=== PATIENT | male | born 1955 | race Caucasian/White ===

== ENCOUNTER 2016-08-03 21:01 | Inpatient (IN) | payer MEDICAID ==
[~2016-08-03] VITALS: Ht 170.2 cm; Wt 80.2 kg
[~2016-08-03 21:01] MED LIST: FURO80TA PO; GLIP-116 PO; LOSA100T27 PO; OMEP20CA5 PO; SIMV-13 PO; WARF2.5T39 PO
[2016-08-03 22:13] LABS: Basophils # (auto) 0 uL; DEFINITIVE VIEW TRANSMISSION; Eosinophils # (auto) 0 uL; Hematocrit 38.5 % (41.0-53.0); Hemoglobin 12.1 g/dL (13.5-17.5); Lymphocytes # (auto) 0.5 uL; Lymphocytes % (auto) 2.8 % (10.0-50.0); Mean Corpuscular Hemoglobin 26.3 pg (28.0-32.0); Mean Corpuscular Hgb Conc. 31.5 g/dL (32.0-36.0); Mean Corpuscular Volume 83.5 fL (80.0-100.0); Monocytes # (auto) 0.9 uL; Monocytes % (auto) 5.1 % (0.0-12.0); Neutrophils # (auto) 15.5 uL; Neutrophils % (auto) 92.1 % (37.0-80.0); Platelet Count (auto) 185 10^3/uL (140-450); SUSPECT VIEW TRANSMISSION; White Blood Cell 16.9 10^3/uL (4.4-10.8)
[2016-08-03 22:27] LABS: Red Cell Distribution Width 21.1 % (11.6-16.0)
[2016-08-03 22:32] LABS: Albumin 3.5 g/dL (3.4-5.0); BUN/Creatinine Ratio 23.2; Calcium 8.2 mg/dL (8.5-10.1); Potassium 3.6 mmol/L (3.5-5.1)
[2016-08-03 22:34] LABS: Total Protein 7.5 g/dL (6.4-8.2)
[2016-08-03 23:06] LABS: Platelet Estimate Adequate
[2016-08-03 23:07] LABS: Anisocytosis Moderate; Hypochromia Slight
[2016-08-04] MEDS ORDERED: cefTRIAXone 1GM/50ML D5W 50 ML IV ONE (03:15)
[2016-08-04 04:05] LABS: Urine Bilirubin Negative (Negative); Urine Blood Negative /uL (Negative); Urine Color Yellow (Yellow); Urine Glucose Normal (Normal); Urine Hyaline Cast MANY /lpf (0 - 2); Urine Ketone Negative (Negative); Urine Mucus FEW (None Seen); Urine Nitrite Negative (Negative); Urine RBC <1 /hpf (0 - 3); Urine Squamous Epithelial Cell FEW /hpf (<5); Urine Urobilinogen Normal (Negative)
[2016-08-04] MEDS ORDERED: ACETAMINOPHEN 325 MG TAB PO PRN (05:15)
[2016-08-04] MEDS ORDERED: NITROGLYCERIN 0.4 MG SL TAB SL PRN (05:15)
[2016-08-04] MEDS ORDERED: DEXTROSE (50%) 50ML SYRG IV PRN (05:15)
[2016-08-04] MEDS ORDERED: DEXTROSE 10% 1,000 ML IV ONE (05:15)
[2016-08-04] MEDS ORDERED: MORPHINE SULF INJ 2 MG/ML SYRINGE 1ML IV PRN (05:15)
[2016-08-04] MEDS: InsuLIN REG 1unit/0.01ml Soln (100units/ml) SC SCH ×5 (08:00→23:45)
[2016-08-04 08:50] VITALS: BP 97/62
[2016-08-04] MEDS: FAMOTIDINE 20 MG TAB PO SCH ×2 (09:49→21:55)
[2016-08-04] MEDS: ACCU-CHEK COMFORT CURVE STRIP VI SCH ×5 (09:49→23:45)
[2016-08-04] MEDS: APIXABAN 5 MG TAB PO SCH ×2 (09:49→21:54)
[2016-08-04] MEDS: CARVEDILOL 3.125 MG TAB PO SCH ×2 (09:50→21:54)
[2016-08-04] MEDS: LOSARTAN POTASSIUM 50 MG TAB PO SCH (09:50)
[2016-08-04] MEDS: FUROSEMIDE 40 MG TAB PO SCH (09:51)
[2016-08-04] MEDS ORDERED: ENOXAPARIN SOD 40 MG/0.4 ML SYRINGE SC SCH (10:00)
[2016-08-04 11:53] VITALS: BP 93/69
[2016-08-04] MEDS: HYDROcodone-ACET 5/325MG TAB PO PRN ×3 (13:39→22:00)
[2016-08-04 15:57] VITALS: BP 104/79
[2016-08-04] MEDS ORDERED: VALS1TAB PO (18:08)
[2016-08-04] MEDS ORDERED: CARV3.1213 OR (18:08)
[2016-08-04] MEDS ORDERED: APIX5TAB OR (18:08)
[2016-08-04] MEDS: ATORVASTATIN 20 MG TAB PO SCH (21:54)
[2016-08-04 22:00] VITALS: BP 132/89
[2016-08-04] MEDS ORDERED: PATIENTS OWN MEDICATION (simvastatin 40 MG) PO SCH ×2 (22:00)
[2016-08-05] MEDS: InsuLIN REG 1unit/0.01ml Soln (100units/ml) SC SCH ×5 (03:40→20:00)
[2016-08-05] MEDS: ACCU-CHEK COMFORT CURVE STRIP VI SCH ×5 (03:40→20:16)
[2016-08-05] MEDS: HYDROcodone-ACET 5/325MG TAB PO PRN (03:42)
[2016-08-05 05:02] VITALS: BP 96/60
[2016-08-05 06:03] LABS: Basophils # (auto) 0 uL; Basophils % (auto) 0.2 % (0.0-2.0); DEFINITIVE VIEW TRANSMISSION; Eosinophils # (auto) 0.2 uL; Eosinophils % (auto) 1.8 % (0.0-7.0); Hematocrit 32.7 % (41.0-53.0); Hemoglobin 10.9 g/dL (13.5-17.5); Lymphocytes # (auto) 0.5 uL; Lymphocytes % (auto) 6.6 % (10.0-50.0); Mean Corpuscular Hemoglobin 27.7 pg (28.0-32.0); Mean Corpuscular Hgb Conc. 33.3 g/dL (32.0-36.0); Mean Corpuscular Volume 83.4 fL (80.0-100.0); Mean Platelet Volume 9.8 fL (7.4-10.4); Monocytes # (auto) 0.7 uL; Monocytes % (auto) 8.1 % (0.0-12.0); Neutrophils # (auto) 6.9 uL; Neutrophils % (auto) 83.3 % (37.0-80.0); Platelet Count (auto) 172 10^3/uL (140-450); White Blood Cell 8.2 10^3/uL (4.4-10.8)
[2016-08-05 06:26] LABS: Red Cell Distribution Width 21.5 % (11.6-16.0)
[2016-08-05 06:37] LABS: Albumin 3.1 g/dL (3.4-5.0); BUN/Creatinine Ratio 30.7; Bilirubin, Total 1.3 mg/dL (0.2-1.0); Calcium 8.1 mg/dL (8.5-10.1); Potassium 3.6 mmol/L (3.5-5.1); Total Protein 6.6 g/dL (6.4-8.2)
[2016-08-05 06:56] LABS: Anisocytosis Moderate; Ovalocytes FEW; Platelet Estimate Adequate
[2016-08-05 09:00] VITALS: BP 99/76
[2016-08-05] MEDS: APIXABAN 5 MG TAB PO SCH ×2 (10:49→22:15)
[2016-08-05] MEDS: CARVEDILOL 3.125 MG TAB PO SCH ×2 (10:50→22:16)
[2016-08-05] MEDS: LOSARTAN POTASSIUM 50 MG TAB PO SCH (10:50)
[2016-08-05] MEDS: FAMOTIDINE 20 MG TAB PO SCH ×2 (10:51→22:16)
[2016-08-05] MEDS: FUROSEMIDE 40 MG TAB PO SCH (10:51)
[2016-08-05 12:37] VITALS: BP 105/82
[2016-08-05] MEDS: ONDANSETRON HCL 4 MG/2 ML VIAL IV PRN ×2 (13:34→22:16)
[2016-08-05 16:56] VITALS: BP 105/65
[2016-08-05 20:00] VITALS: BP 108/72
[2016-08-05 22:00] VITALS: BP 108/72
[2016-08-05] MEDS: CIPROFLOXACIN HCL 500 MG TAB PO SCH (22:15)
[2016-08-05] MEDS: ATORVASTATIN 20 MG TAB PO SCH (22:16)
[2016-08-06] MEDS: ACCU-CHEK COMFORT CURVE STRIP VI SCH ×3 (00:15→08:01)
[2016-08-06] MEDS: HYDROcodone-ACET 5/325MG TAB PO PRN (01:46)
[2016-08-06] MEDS: InsuLIN REG 1unit/0.01ml Soln (100units/ml) SC SCH ×3 (04:00→08:00)
[2016-08-06 05:00] VITALS: BP 100/57
[2016-08-06 06:39] LABS: Magnesium 2.6 mg/dL (1.6-2.6); Potassium 4.1 mmol/L (3.5-5.1)
[2016-08-06 06:41] LABS: BUN/Creatinine Ratio 29.4
[2016-08-06] MEDS: APIXABAN 5 MG TAB PO SCH (09:27)
[2016-08-06] MEDS: CIPROFLOXACIN HCL 500 MG TAB PO SCH (09:27)
[2016-08-06] MEDS: FAMOTIDINE 20 MG TAB PO SCH (09:27)
[2016-08-06] MEDS: LOSARTAN POTASSIUM 50 MG TAB PO SCH (09:28)
[2016-08-06] MEDS: CARVEDILOL 3.125 MG TAB PO SCH (09:28)
[2016-08-06] MEDS: FUROSEMIDE 40 MG TAB PO SCH (09:29)
[2016-08-06 10:45] VITALS: BP 103/44
== END 2016-08-06 11:40 | disposition home or self-care (01) | DRG 420 ==
LOC: EDBD 21:01 → ER 21:06 → TELE 21:07 → TELE-E-ADS 08-04 08:00 → TELE-WESTW 08-04 11:08
PROVIDERS: ADMIT Nurse Practitioner; ATTEND Internal Medicine
DX: E11.649 Type 2 diabetes mellitus with hypoglycemia without coma (principal); E44.0 Moderate protein-calorie malnutrition; I50.9 Heart failure, unspecified; N39.0 Urinary tract infection, site not specified; I13.0 Hypertensive heart and chronic kidney disease with heart failure and stage 1 through stage 4 chronic kidney disease, or unspecified chronic kidney disease; E11.21 Type 2 diabetes mellitus with diabetic nephropathy; E11.22 Type 2 diabetes mellitus with diabetic chronic kidney disease; N18.3 Chronic kidney disease, stage 3 (moderate); D72.829 Elevated white blood cell count, unspecified; E78.5 Hyperlipidemia, unspecified; Z68.27 Body mass index [BMI] 27.0-27.9, adult; I25.10 Atherosclerotic heart disease of native coronary artery without angina pectoris; Z82.49 Family history of ischemic heart disease and other diseases of the circulatory system; Z83.3 Family history of diabetes mellitus; Z95.1 Presence of aortocoronary bypass graft; E11.65 Type 2 diabetes mellitus with hyperglycemia
CPT/HCPCS: 36415; 71010; 80048; 80053; 81001; 82962; 83735; 85025; 87086; 87088; 87186; 93005; 96365; J0696; J1815; J2405

== ENCOUNTER 2021-06-19 22:51 | Inpatient (IN) | payer MEDICARE, MEDICAID ==
[~2021-06-19] VITALS: Ht 170.2 cm; Wt 58.8 kg
[~2021-06-19 22:51] MED LIST changes: +APIX5TAB OR; +CAR3125T OR; +FURO1TAB32 PO; -FURO80TA PO; -GLIP-116 PO; +GLIP10TA9 PO; -LOSA100T27 PO; -OMEP20CA5 PO; +OMEP20CA74 PO; +VALS1TAB57 PO; -WARF2.5T39 PO
[2021-06-20] MEDS ORDERED: HYDROcodone-ACET 5/325MG TAB PO ONE (01:30)
[2021-06-20 01:31] LABS: Basophils # (auto) 0 10 ^3/uL (0-0.2); Basophils % (auto) 0.7 % (0.0-2.0); Eosinophils # (auto) 0 10 ^3/uL (0-0.8); Eosinophils % (auto) 0.2 % (0.0-7.0); Hematocrit 36.5 % (41.0-53.0); Hemoglobin 12.1 g/dL (13.5-17.5); Lymphocytes # (auto) 0.2 10 ^3/uL (0.4-5.4); Mean Corpuscular Hemoglobin 33.6 pg (28.0-32.0); Mean Corpuscular Hgb Conc. 33.2 g/dL (32.0-36.0); Mean Corpuscular Volume 101.2 fL (80.0-100.0); Monocytes # (auto) 0.4 10 ^3/uL (0-1.3); Monocytes % (auto) 7.2 % (0.0-12.0); Neutrophils # (auto) 4.6 10 ^3/uL (1.6-8.6); Neutrophils % (auto) 87.9 % (37.0-80.0); Nucleated Red Blood Cells % 0.1 %; Red Cell Distribution Width 15.5 % (11.8-14.3); White Blood Cell 5.3 10^3/uL (4.4-10.8)
[2021-06-20] MEDS ORDERED: ONDANSETRON HCL 4 MG/2 ML VIAL ONE (01:37)
[2021-06-20 01:42] LABS: INR 1.49 (0.9-1.15); Partial Thromboplastin Time 35.2 sec (23.6-33.0)
[2021-06-20 01:43] LABS: Calcium 8.5 mg/dL (8.5-10.1); Potassium 4.3 mmol/L (3.5-5.1)
[2021-06-20] MEDS ORDERED: ONDANSETRON HCL 4 MG/2 ML VIAL IV ONE (01:45)
[2021-06-20 01:47] LABS: Albumin 3.1 g/dL (3.4-5.0); BUN/Creatinine Ratio 24.9
[2021-06-20 01:50] LABS: Bilirubin, Total 1.9 mg/dL (0.2-1.0); Total Protein 6.3 g/dL (6.4-8.2)
[2021-06-20] MEDS ORDERED: DEXTROSE (50%) 50ML SYRG IV PRN (03:15)
[2021-06-20] MEDS ORDERED: DOCUSATE SOD 100 MG CAP PO PRN (03:15)
[2021-06-20] MEDS: HYDROcodone-ACET 5/325MG TAB PO PRN ×4 (04:04→20:20)
[2021-06-20] MEDS ORDERED: MORPHINE SULFATE INJECTION 2 MG/ML SYRG IV PRN (04:15)
[2021-06-20] MEDS ORDERED: NITROGLYCERIN 0.4 MG SL TAB SL PRN (04:15)
[2021-06-20 06:42] LABS: Basophils # (auto) 0 10 ^3/uL (0-0.2); Basophils % (auto) 0.7 % (0.0-2.0); Eosinophils # (auto) 0 10 ^3/uL (0-0.8); Eosinophils % (auto) 0.1 % (0.0-7.0); Hematocrit 35.9 % (41.0-53.0); Lymphocytes # (auto) 0.2 10 ^3/uL (0.4-5.4); Mean Corpuscular Hemoglobin 33.5 pg (28.0-32.0); Mean Corpuscular Hgb Conc. 33.5 g/dL (32.0-36.0); Monocytes # (auto) 0.4 10 ^3/uL (0-1.3); Monocytes % (auto) 7.8 % (0.0-12.0); Neutrophils # (auto) 4.4 10 ^3/uL (1.6-8.6); Neutrophils % (auto) 87.4 % (37.0-80.0); Red Blood Cells 3.59 10^6/uL (4.5-5.90); Red Cell Distribution Width 15.2 % (11.8-14.3)
[2021-06-20 06:59] LABS: Albumin 2.9 g/dL (3.4-5.0); Calcium 8.4 mg/dL (8.5-10.1); Potassium 4.4 mmol/L (3.5-5.1)
[2021-06-20] MEDS: InsuLIN REG 1unit/0.01ml Soln (100units/ml) SC SCH ×4 (07:00→22:00)
[2021-06-20 07:03] LABS: BUN/Creatinine Ratio 24.4; Bilirubin, Total 1.8 mg/dL (0.2-1.0); Total Protein 6.2 g/dL (6.4-8.2)
[2021-06-20] MEDS: ACCU-CHEK COMFORT CURVE STRIP VI SCH ×4 (07:58→22:00)
[2021-06-20] MEDS: SODIUM CHLOR 0.9% PF (SALINE LOCK) 10ML VIAL/SYR IV SCH ×2 (07:59→13:59)
[2021-06-20 08:22] LABS: Urine Bacteria NONE SEEN /hpf (None Seen); Urine Blood Negative /uL (Negative); Urine Hyaline Cast MOD /lpf (0 - 2); Urine Specific Gravity 1.012 (1.001-1.035); Urine WBC 1 /hpf (0 - 3)
[2021-06-20] MEDS ORDERED: DOBUTamine 1000MCG/ML 250 ML IV ONE (09:45)
[2021-06-20] MEDS ORDERED: FUROSEMIDE 20 MG/2 ML VIAL IV SCH (10:00)
[2021-06-20] MEDS: ASCORBIC ACID 500 MG TAB PO SCH ×2 (10:16→22:00)
[2021-06-20] MEDS: ZINC SULFATE 220mg CAP or TAB PO SCH (10:16)
[2021-06-20] MEDS: MULTIPLE VITAMIN TAB PO SCH (10:16)
[2021-06-20] MEDS: FAMOTIDINE (10MG/ML) 2ML VL IV SCH (10:16)
[2021-06-20] MEDS: APIXABAN 2.5 MG TAB PO SCH ×2 (11:23→22:00)
[2021-06-20] MEDS: ALBUMIN 25% 100 ML IV SCH ×2 (11:23→12:52)
[2021-06-20] MEDS: ACETAMINOPHEN 325 MG TAB PO PRN (13:48)
[2021-06-20] MEDS ORDERED: SODIUM CHLORIDE 0.9% 250 ML IV ONE (14:30)
[2021-06-20] MEDS ORDERED: DIGOXIN 0.25 MG TAB PO ONE (20:15)
[2021-06-20] MEDS ORDERED: FUROSEMIDE INJECTION 100 MG in D5W 5% 100 ML IV SCH (20:15)
[2021-06-20] MEDS ORDERED: FUROSEMIDE INJECTION 10 ML ONE (22:28)
[2021-06-21] MEDS: SODIUM CHLOR 0.9% PF (SALINE LOCK) 10ML VIAL/SYR IV SCH ×4 (01:10→23:21)
[2021-06-21] MEDS: HYDROcodone-ACET 5/325MG TAB PO PRN ×2 (01:45→06:12)
[2021-06-21 04:00] VITALS: BP 90/50
[2021-06-21] MEDS: ACETAMINOPHEN 325 MG TAB PO PRN (04:15)
[2021-06-21 06:03] LABS: Basophils # (auto) 0.1 10 ^3/uL (0-0.2); Basophils % (auto) 1.1 % (0.0-2.0); Eosinophils # (auto) 0.1 10 ^3/uL (0-0.8); Eosinophils % (auto) 1.8 % (0.0-7.0); Hematocrit 36.1 % (41.0-53.0); Hemoglobin 12.2 g/dL (13.5-17.5); Lymphocytes # (auto) 0.2 10 ^3/uL (0.4-5.4); Mean Corpuscular Hgb Conc. 33.8 g/dL (32.0-36.0); Mean Corpuscular Volume 100.6 fL (80.0-100.0); Monocytes # (auto) 0.5 10 ^3/uL (0-1.3); Monocytes % (auto) 9.1 % (0.0-12.0); Neutrophils # (auto) 4.8 10 ^3/uL (1.6-8.6); Nucleated Red Blood Cells % 0.1 %; Red Blood Cells 3.59 10^6/uL (4.5-5.90); Red Cell Distribution Width 14.9 % (11.8-14.3); White Blood Cell 5.7 10^3/uL (4.4-10.8)
[2021-06-21] MEDS: ACCU-CHEK COMFORT CURVE STRIP VI SCH ×4 (06:11→23:18)
[2021-06-21] MEDS: ONDANSETRON HCL 4 MG/2 ML VIAL IV PRN ×3 (06:12→21:29)
[2021-06-21 06:19] LABS: Potassium 4.7 mmol/L (3.5-5.1)
[2021-06-21 06:27] LABS: Albumin 3.2 g/dL (3.4-5.0); Bilirubin, Total 2.2 mg/dL (0.2-1.0); Calcium 8.6 mg/dL (8.5-10.1)
[2021-06-21] MEDS: InsuLIN REG 1unit/0.01ml Soln (100units/ml) SC SCH ×4 (07:00→22:00)
[2021-06-21 09:00] VITALS: BP 111/51
[2021-06-21] MEDS: IVABRADINE 5 MG TAB PO SCH (10:00)
[2021-06-21] MEDS: DIGOXIN 0.125 MG TAB PO SCH (10:00)
[2021-06-21] MEDS: APIXABAN 2.5 MG TAB PO SCH ×2 (10:00→23:16)
[2021-06-21] MEDS: ZINC SULFATE 220mg CAP or TAB PO SCH (10:30)
[2021-06-21] MEDS: ALBUMIN 25% 50 ML IV SCH ×2 (10:30→22:10)
[2021-06-21] MEDS: ASCORBIC ACID 500 MG TAB PO SCH ×2 (10:30→23:17)
[2021-06-21] MEDS: FAMOTIDINE (10MG/ML) 2ML VL IV SCH (10:30)
[2021-06-21] MEDS: MULTIPLE VITAMIN TAB PO SCH (10:30)
[2021-06-21] MEDS ORDERED: MIDODRINE HCL 10 MG TAB PO SCH (12:00)
[2021-06-21 12:52] VITALS: BP 111/52
[2021-06-21 13:38] LABS: BUN/Creatinine Ratio 23.6; Calcium 8.9 mg/dL (8.5-10.1); Potassium 4.8 mmol/L (3.5-5.1)
[2021-06-21 17:00] VITALS: BP 132/66
[2021-06-21] MEDS: MORPHINE SULFATE INJECTION 2 MG/ML SYRG IV PRN ×2 (17:00→20:41)
[2021-06-21] MEDS: FUROSEMIDE 100 MG/10ML VIAL IV SCH (18:00)
[2021-06-21 22:00] VITALS: BP 121/73
[2021-06-21] MEDS: GABAPENTIN 300 MG CAP PO SCH (23:17)
[2021-06-22] MEDS: MORPHINE SULFATE INJECTION 2 MG/ML SYRG IV PRN (03:43)
[2021-06-22] MEDS: ALBUMIN 25% 50 ML IV SCH (04:12)
[2021-06-22 05:00] VITALS: BP 100/56
[2021-06-22] MEDS: FUROSEMIDE 100 MG/10ML VIAL IV SCH ×2 (06:33→18:00)
[2021-06-22] MEDS: ACCU-CHEK COMFORT CURVE STRIP VI SCH ×4 (06:33→21:53)
[2021-06-22] MEDS: SODIUM CHLOR 0.9% PF (SALINE LOCK) 10ML VIAL/SYR IV SCH ×3 (06:33→21:52)
[2021-06-22] MEDS: InsuLIN REG 1unit/0.01ml Soln (100units/ml) SC SCH ×4 (06:34→21:53)
[2021-06-22] MEDS: ONDANSETRON HCL 4 MG/2 ML VIAL IV PRN ×2 (08:54→10:49)
[2021-06-22] MEDS: FAMOTIDINE (10MG/ML) 2ML VL IV SCH (08:54)
[2021-06-22] MEDS: HYDROcodone-ACET 5/325MG TAB PO PRN ×3 (09:41→19:47)
[2021-06-22] MEDS: GABAPENTIN 300 MG CAP PO SCH ×2 (10:00→21:53)
[2021-06-22] MEDS: DOBUTamine 1000MCG/ML 250 ML IV SCH (10:48)
[2021-06-22] MEDS: ZINC SULFATE 220mg CAP or TAB PO SCH (10:49)
[2021-06-22] MEDS: DIGOXIN 0.125 MG TAB PO SCH (10:50)
[2021-06-22] MEDS: IVABRADINE 5 MG TAB PO SCH (10:50)
[2021-06-22] MEDS: APIXABAN 2.5 MG TAB PO SCH ×2 (10:50→21:52)
[2021-06-22] MEDS: ASCORBIC ACID 500 MG TAB PO SCH ×2 (10:51→21:53)
[2021-06-22] MEDS: MULTIPLE VITAMIN TAB PO SCH (10:51)
[2021-06-22 10:52] VITALS: BP 96/60
[2021-06-22 12:38] LABS: Basophils # (auto) 0.1 10 ^3/uL (0-0.2); Eosinophils # (auto) 0.1 10 ^3/uL (0-0.8); Lymphocytes # (auto) 0.2 10 ^3/uL (0.4-5.4); Neutrophils # (auto) 5.8 10 ^3/uL (1.6-8.6); Neutrophils % (auto) 85.7 % (37.0-80.0); White Blood Cell 6.8 10^3/uL (4.4-10.8)
[2021-06-22 12:41] LABS: Basophils % (auto) 0.9 % (0.0-2.0); Hematocrit 36.4 % (41.0-53.0); Hemoglobin 12.3 g/dL (13.5-17.5); Lymphocytes % (auto) 3.3 % (10.0-50.0); Mean Corpuscular Hemoglobin 34.1 pg (28.0-32.0); Mean Corpuscular Hgb Conc. 33.8 g/dL (32.0-36.0); Monocytes # (auto) 0.5 10 ^3/uL (0-1.3); Monocytes % (auto) 8.1 % (0.0-12.0)
[2021-06-22 13:54] LABS: Albumin 3.2 g/dL (3.4-5.0); BUN/Creatinine Ratio 21.8; Bilirubin, Total 1.9 mg/dL (0.2-1.0); Calcium 8.5 mg/dL (8.5-10.1); Potassium 4.2 mmol/L (3.5-5.1)
[2021-06-22 15:24] VITALS: BP 146/67
[2021-06-22 20:00] VITALS: BP 106/57
[2021-06-23] MEDS: HYDROcodone-ACET 5/325MG TAB PO PRN ×4 (00:46→23:22)
[2021-06-23 05:00] VITALS: BP 116/32
[2021-06-23 05:23] LABS: Basophils # (auto) 0.1 10 ^3/uL (0-0.2); Basophils % (auto) 0.9 % (0.0-2.0); Eosinophils # (auto) 0.2 10 ^3/uL (0-0.8); Eosinophils % (auto) 2.6 % (0.0-7.0); Hematocrit 36.8 % (41.0-53.0); Hemoglobin 12.2 g/dL (13.5-17.5); Lymphocytes # (auto) 0.2 10 ^3/uL (0.4-5.4); Lymphocytes % (auto) 3.3 % (10.0-50.0); Mean Corpuscular Hemoglobin 33.6 pg (28.0-32.0); Mean Corpuscular Hgb Conc. 33.2 g/dL (32.0-36.0); Mean Corpuscular Volume 101.3 fL (80.0-100.0); Monocytes # (auto) 0.6 10 ^3/uL (0-1.3); Monocytes % (auto) 9.4 % (0.0-12.0); Neutrophils # (auto) 5.1 10 ^3/uL (1.6-8.6); Neutrophils % (auto) 83.8 % (37.0-80.0); Red Blood Cells 3.63 10^6/uL (4.5-5.90); Red Cell Distribution Width 15.3 % (11.8-14.3); White Blood Cell 6.1 10^3/uL (4.4-10.8)
[2021-06-23 05:40] LABS: Albumin 3.3 g/dL (3.4-5.0); Calcium 8.5 mg/dL (8.5-10.1); Potassium 4.9 mmol/L (3.5-5.1)
[2021-06-23 05:43] LABS: BUN/Creatinine Ratio 20.1; Bilirubin, Total 1.5 mg/dL (0.2-1.0); Total Protein 6.2 g/dL (6.4-8.2)
[2021-06-23] MEDS: FUROSEMIDE 100 MG/10ML VIAL IV SCH ×2 (06:00→18:00)
[2021-06-23] MEDS: InsuLIN REG 1unit/0.01ml Soln (100units/ml) SC SCH ×4 (06:20→21:55)
[2021-06-23] MEDS: SODIUM CHLOR 0.9% PF (SALINE LOCK) 10ML VIAL/SYR IV SCH ×3 (06:21→19:18)
[2021-06-23] MEDS: ACCU-CHEK COMFORT CURVE STRIP VI SCH ×4 (06:21→21:54)
[2021-06-23 08:00] VITALS: BP 146/48
[2021-06-23] MEDS: FAMOTIDINE (10MG/ML) 2ML VL IV SCH (09:57)
[2021-06-23] MEDS: ZINC SULFATE 220mg CAP or TAB PO SCH (09:57)
[2021-06-23] MEDS: APIXABAN 2.5 MG TAB PO SCH ×2 (09:58→21:53)
[2021-06-23] MEDS: DIGOXIN 0.125 MG TAB PO SCH (09:58)
[2021-06-23] MEDS: IVABRADINE 5 MG TAB PO SCH (09:58)
[2021-06-23] MEDS: GABAPENTIN 300 MG CAP PO SCH ×2 (09:59→21:53)
[2021-06-23] MEDS: ASCORBIC ACID 500 MG TAB PO SCH ×2 (09:59→21:53)
[2021-06-23] MEDS: MULTIPLE VITAMIN TAB PO SCH (09:59)
[2021-06-23] MEDS: ONDANSETRON HCL 4 MG/2 ML VIAL IV PRN (10:00)
[2021-06-23 12:00] VITALS: BP 117/60
[2021-06-23 12:58] LABS: Protein, Urine 12.7 mg/dL (0.0-11.9)
[2021-06-23] MEDS ORDERED: IVAB1.7T PO (13:05)
[2021-06-23] MEDS ORDERED: DIGO1TAB48 PO (13:05)
[2021-06-23 15:34] VITALS: BP_SYST 117; BP_SYST 119; BP_DIAS 60; BP_DIAS 69
[2021-06-23 16:00] VITALS: BP 146/59
[2021-06-23] MEDS: DOBUTamine 1000MCG/ML 250 ML IV SCH (19:02)
[2021-06-23 22:00] VITALS: BP 100/45
[2021-06-24] MEDS: ACETAMINOPHEN 325 MG TAB PO PRN (02:19)
[2021-06-24 05:00] VITALS: BP 101/63
[2021-06-24] MEDS: SODIUM CHLOR 0.9% PF (SALINE LOCK) 10ML VIAL/SYR IV SCH ×3 (05:13→22:13)
[2021-06-24] MEDS: FUROSEMIDE 100 MG/10ML VIAL IV SCH ×2 (05:14→18:24)
[2021-06-24] MEDS: HYDROcodone-ACET 5/325MG TAB PO PRN ×3 (05:14→20:39)
[2021-06-24] MEDS: InsuLIN REG 1unit/0.01ml Soln (100units/ml) SC SCH ×4 (06:19→22:00)
[2021-06-24] MEDS: ACCU-CHEK COMFORT CURVE STRIP VI SCH ×4 (06:19→22:13)
[2021-06-24] MEDS: ONDANSETRON HCL 4 MG/2 ML VIAL IV PRN (06:48)
[2021-06-24 07:00] LABS: Basophils # (auto) 0.1 10 ^3/uL (0-0.2); Basophils % (auto) 0.9 % (0.0-2.0); Eosinophils # (auto) 0.2 10 ^3/uL (0-0.8); Eosinophils % (auto) 2.4 % (0.0-7.0); Hematocrit 36.4 % (41.0-53.0); Lymphocytes # (auto) 0.2 10 ^3/uL (0.4-5.4); Lymphocytes % (auto) 3.4 % (10.0-50.0); Mean Corpuscular Hemoglobin 33.1 pg (28.0-32.0); Mean Corpuscular Hgb Conc. 32.9 g/dL (32.0-36.0); Mean Corpuscular Volume 100.7 fL (80.0-100.0); Monocytes # (auto) 0.6 10 ^3/uL (0-1.3); Monocytes % (auto) 9.5 % (0.0-12.0); Neutrophils # (auto) 5.5 10 ^3/uL (1.6-8.6); Neutrophils % (auto) 83.8 % (37.0-80.0); Nucleated Red Blood Cells % 0.1 %; Red Blood Cells 3.61 10^6/uL (4.5-5.90); Red Cell Distribution Width 15.1 % (11.8-14.3); White Blood Cell 6.5 10^3/uL (4.4-10.8)
[2021-06-24 07:10] LABS: Albumin 3.1 g/dL (3.4-5.0); Calcium 8.3 mg/dL (8.5-10.1); Potassium 4.7 mmol/L (3.5-5.1)
[2021-06-24 07:12] LABS: BUN/Creatinine Ratio 21.8
[2021-06-24 07:15] LABS: Bilirubin, Total 1.4 mg/dL (0.2-1.0); Total Protein 5.9 g/dL (6.4-8.2)
[2021-06-24] MEDS: DOBUTamine 1000MCG/ML 250 ML IV SCH ×2 (08:30→22:17)
[2021-06-24 09:00] VITALS: BP 102/42
[2021-06-24] MEDS: FAMOTIDINE (10MG/ML) 2ML VL IV SCH (10:00)
[2021-06-24] MEDS: APIXABAN 2.5 MG TAB PO SCH (10:00)
[2021-06-24] MEDS: ASCORBIC ACID 500 MG TAB PO SCH ×2 (10:00→22:17)
[2021-06-24] MEDS: IVABRADINE 5 MG TAB PO SCH (10:00)
[2021-06-24] MEDS: MULTIPLE VITAMIN TAB PO SCH (10:00)
[2021-06-24] MEDS: DIGOXIN 0.125 MG TAB PO SCH (10:00)
[2021-06-24] MEDS: ZINC SULFATE 220mg CAP or TAB PO SCH (10:00)
[2021-06-24] MEDS: GABAPENTIN 300 MG CAP PO SCH ×3 (10:00→22:17)
[2021-06-24 12:46] VITALS: BP 126/42
[2021-06-24 17:06] VITALS: BP 119/40
[2021-06-24 22:00] VITALS: BP 128/31
[2021-06-24] MEDS ORDERED: TEMAZEPAM 15 MG CAP PO PRN (22:15)
[2021-06-25 05:00] VITALS: BP 130/108
[2021-06-25] MEDS: SODIUM CHLOR 0.9% PF (SALINE LOCK) 10ML VIAL/SYR IV SCH ×3 (06:24→21:56)
[2021-06-25] MEDS: ACCU-CHEK COMFORT CURVE STRIP VI SCH ×4 (06:24→22:06)
[2021-06-25] MEDS: FUROSEMIDE 100 MG/10ML VIAL IV SCH ×2 (06:25→18:12)
[2021-06-25] MEDS: InsuLIN REG 1unit/0.01ml Soln (100units/ml) SC SCH ×4 (06:34→22:06)
[2021-06-25 07:20] LABS: Basophils # (auto) 0.1 10 ^3/uL (0-0.2); Eosinophils # (auto) 0.2 10 ^3/uL (0-0.8); Eosinophils % (auto) 2.9 % (0.0-7.0); Hematocrit 33.9 % (41.0-53.0); Hemoglobin 11.4 g/dL (13.5-17.5); Lymphocytes # (auto) 0.3 10 ^3/uL (0.4-5.4); Lymphocytes % (auto) 4.4 % (10.0-50.0); Mean Corpuscular Hemoglobin 33.7 pg (28.0-32.0); Mean Corpuscular Hgb Conc. 33.6 g/dL (32.0-36.0); Mean Corpuscular Volume 100.4 fL (80.0-100.0); Monocytes # (auto) 0.6 10 ^3/uL (0-1.3); Monocytes % (auto) 9.9 % (0.0-12.0); Neutrophils # (auto) 5.1 10 ^3/uL (1.6-8.6); Neutrophils % (auto) 81.8 % (37.0-80.0); Red Blood Cells 3.37 10^6/uL (4.5-5.90); Red Cell Distribution Width 15.3 % (11.8-14.3); White Blood Cell 6.2 10^3/uL (4.4-10.8)
[2021-06-25 07:23] LABS: Potassium 4.1 mmol/L (3.5-5.1)
[2021-06-25 07:28] LABS: Albumin 3.1 g/dL (3.4-5.0); BUN/Creatinine Ratio 26.6; Bilirubin, Total 1.1 mg/dL (0.2-1.0); Calcium 8.2 mg/dL (8.5-10.1); Total Protein 5.7 g/dL (6.4-8.2)
[2021-06-25 09:00] VITALS: BP 118/64
[2021-06-25] MEDS: HYDROcodone-ACET 5/325MG TAB PO PRN ×3 (09:57→19:29)
[2021-06-25] MEDS: FAMOTIDINE (10MG/ML) 2ML VL IV SCH (09:58)
[2021-06-25] MEDS: ZINC SULFATE 220mg CAP or TAB PO SCH (09:58)
[2021-06-25] MEDS: MULTIPLE VITAMIN TAB PO SCH (09:59)
[2021-06-25] MEDS: GABAPENTIN 300 MG CAP PO SCH ×2 (09:59→21:57)
[2021-06-25] MEDS: ASCORBIC ACID 500 MG TAB PO SCH ×2 (09:59→21:58)
[2021-06-25] MEDS: IVABRADINE 5 MG TAB PO SCH (10:00)
[2021-06-25] MEDS: DIGOXIN 0.125 MG TAB PO SCH (10:02)
[2021-06-25 12:46] VITALS: BP 126/66
[2021-06-25 14:20] LABS: INR 1.38 (0.9-1.15); Partial Thromboplastin Time 33.4 sec (23.6-33.0)
[2021-06-25 16:38] VITALS: BP 140/66
[2021-06-25 22:00] VITALS: BP 120/43
[2021-06-26 05:00] VITALS: BP 120/48
[2021-06-26] MEDS: SODIUM CHLOR 0.9% PF (SALINE LOCK) 10ML VIAL/SYR IV SCH (06:08)
[2021-06-26] MEDS: ACCU-CHEK COMFORT CURVE STRIP VI SCH ×2 (06:15→11:24)
[2021-06-26] MEDS: InsuLIN REG 1unit/0.01ml Soln (100units/ml) SC SCH ×2 (06:26→11:24)
[2021-06-26 06:43] LABS: Basophils # (auto) 0.1 10 ^3/uL (0-0.2); Eosinophils # (auto) 0.2 10 ^3/uL (0-0.8); Lymphocytes # (auto) 0.2 10 ^3/uL (0.4-5.4); Lymphocytes % (auto) 4.1 % (10.0-50.0); Mean Corpuscular Hemoglobin 34.2 pg (28.0-32.0); White Blood Cell 5.7 10^3/uL (4.4-10.8)
[2021-06-26 06:45] LABS: Basophils % (auto) 1.1 % (0.0-2.0); Eosinophils % (auto) 2.9 % (0.0-7.0); Hematocrit 33.8 % (41.0-53.0); Hemoglobin 11.6 g/dL (13.5-17.5); Mean Corpuscular Hgb Conc. 34.2 g/dL (32.0-36.0); Mean Corpuscular Volume 99.9 fL (80.0-100.0); Monocytes # (auto) 0.6 10 ^3/uL (0-1.3); Monocytes % (auto) 10.1 % (0.0-12.0); Neutrophils # (auto) 4.7 10 ^3/uL (1.6-8.6); Neutrophils % (auto) 81.8 % (37.0-80.0); Nucleated Red Blood Cells % 0.1 %; Red Blood Cells 3.38 10^6/uL (4.5-5.90); Red Cell Distribution Width 15.4 % (11.8-14.3)
[2021-06-26] MEDS: FUROSEMIDE 100 MG/10ML VIAL IV SCH (06:53)
[2021-06-26 07:01] LABS: INR 1.36 (0.9-1.15); Partial Thromboplastin Time 34.6 sec (23.6-33.0)
[2021-06-26 07:08] LABS: Potassium 4.2 mmol/L (3.5-5.1)
[2021-06-26 07:14] LABS: BUN/Creatinine Ratio 25.2; Calcium 8.3 mg/dL (8.5-10.1)
[2021-06-26 07:16] LABS: Bilirubin, Total 1.2 mg/dL (0.2-1.0)
[2021-06-26] MEDS: FAMOTIDINE (10MG/ML) 2ML VL IV SCH (08:34)
[2021-06-26] MEDS: ZINC SULFATE 220mg CAP or TAB PO SCH (08:34)
[2021-06-26] MEDS: IVABRADINE 5 MG TAB PO SCH (08:34)
[2021-06-26] MEDS: MULTIPLE VITAMIN TAB PO SCH (08:34)
[2021-06-26] MEDS: ASCORBIC ACID 500 MG TAB PO SCH (08:34)
[2021-06-26] MEDS: GABAPENTIN 300 MG CAP PO SCH (08:35)
[2021-06-26] MEDS: DIGOXIN 0.125 MG TAB PO SCH (08:35)
[2021-06-26 08:58] VITALS: BP 119/69
[2021-06-26 09:10] VITALS: BP 119/69
[2021-06-26] MEDS: DOBUTamine 1000MCG/ML 250 ML IV SCH (09:10)
== END 2021-06-26 14:15 | disposition home or self-care (01) | DRG 291 ==
LOC: EDBD 22:51 → ER 22:51 → TELE 06-20 04:09 → TELE-WESTW 06-20 23:00
PROVIDERS: ADMIT Nurse Practitioner Family; ATTEND Internal Medicine Geriatric Medicine
PROC: 0W993ZZ Drainage of Right Pleural Cavity, Percutaneous Approach (ICD-10-PCS; principal; 2021-06-25)
DX: I13.0 Hypertensive heart and chronic kidney disease with heart failure and stage 1 through stage 4 chronic kidney disease, or unspecified chronic kidney disease (principal); I50.23 Acute on chronic systolic (congestive) heart failure; J96.01 Acute respiratory failure with hypoxia; E87.1 Hypo-osmolality and hyponatremia; J98.11 Atelectasis; N17.9 Acute kidney failure, unspecified; R18.8 Other ascites; I42.0 Dilated cardiomyopathy; E78.00 Pure hypercholesterolemia, unspecified; E78.5 Hyperlipidemia, unspecified; E11.22 Type 2 diabetes mellitus with diabetic chronic kidney disease; E11.51 Type 2 diabetes mellitus with diabetic peripheral angiopathy without gangrene; I25.10 Atherosclerotic heart disease of native coronary artery without angina pectoris; I25.5 Ischemic cardiomyopathy; I27.20 Pulmonary hypertension, unspecified; F41.9 Anxiety disorder, unspecified; I95.9 Hypotension, unspecified; Z20.822 Contact with and (suspected) exposure to COVID-19; I48.91 Unspecified atrial fibrillation; K74.60 Unspecified cirrhosis of liver; N18.31 Chronic kidney disease, stage 3a; Z79.899 Other long term (current) drug therapy; Z82.49 Family history of ischemic heart disease and other diseases of the circulatory system; Z83.3 Family history of diabetes mellitus; Z79.01 Long term (current) use of anticoagulants; Z86.718 Personal history of other venous thrombosis and embolism; Z86.73 Personal history of transient ischemic attack (TIA), and cerebral infarction without residual deficits; Z95.1 Presence of aortocoronary bypass graft; Z95.810 Presence of automatic (implantable) cardiac defibrillator; Z88.8 Allergy status to other drugs, medicaments and biological substances
CPT/HCPCS: 36415; 70450; 71045; 71250; 76536; 80048; 80053; 81001; 82570; 82962; 83036; 83735; 83880; 83935; 83986; 84133; 84156; 84300; 84484; 85025; 85610; 85730; 87205; 87426; 89051; 93005; 93306; 96361; 96365; 96375; 97116; 97163; 97530; 99291; G0378; J1815; J2405; J3490; J7060; P9047

== ENCOUNTER 2021-09-16 18:16 | Inpatient (IN) | payer MEDICARE, MEDICAID ==
[~2021-09-16] VITALS: Ht 170.2 cm; Wt 67.3 kg
[~2021-09-16 18:16] MED LIST changes: +DIGO1TAB48 PO; +IVAB1.7T PO; -VALS1TAB57 PO
[2021-09-16] MEDS ORDERED: FUROSEMIDE 100 MG/10ML VIAL IV ONE (19:30)
[2021-09-16 19:41] LABS: Basophils # (auto) 0 10 ^3/uL (0-0.2); Basophils % (auto) 0.1 % (0.0-2.0); Eosinophils # (auto) 0.1 10 ^3/uL (0-0.8); Eosinophils % (auto) 1.6 % (0.0-7.0); Hemoglobin 12.7 g/dL (13.5-17.5); Lymphocytes # (auto) 0.3 10 ^3/uL (0.4-5.4); Lymphocytes % (auto) 4.1 % (10.0-50.0); Mean Corpuscular Hemoglobin 33.5 pg (28.0-32.0); Mean Corpuscular Hgb Conc. 33.6 g/dL (32.0-36.0); Mean Corpuscular Volume 99.9 fL (80.0-100.0); Monocytes # (auto) 0.5 10 ^3/uL (0-1.3); Monocytes % (auto) 7.2 % (0.0-12.0); Neutrophils # (auto) 5.7 10 ^3/uL (1.6-8.6); Nucleated Red Blood Cells % 0.1 %; Red Cell Distribution Width 15.6 % (11.8-14.3); White Blood Cell 6.5 10^3/uL (4.4-10.8)
[2021-09-16 19:59] LABS: Albumin 2.9 g/dL (3.4-5.0); BUN/Creatinine Ratio 30.6; Calcium 8.6 mg/dL (8.5-10.1); Potassium 4.8 mmol/L (3.5-5.1)
[2021-09-16] MEDS ORDERED: HYDROcodone-ACET 5/325MG TAB PO ONE (20:00)
[2021-09-16 20:04] LABS: Bilirubin, Total 2.5 mg/dL (0.2-1.0); Total Protein 6.1 g/dL (6.4-8.2)
[2021-09-16] MEDS ORDERED: MORPHINE SULFATE INJECTION 2 MG/ML SYRG IV PRN (21:45)
[2021-09-16] MEDS ORDERED: NITROGLYCERIN 0.4 MG SL TAB SL PRN (21:45)
[2021-09-16] MEDS ORDERED: ONDANSETRON HCL 4 MG/2 ML VIAL IV PRN (21:45)
[2021-09-16] MEDS: CARVEDILOL 3.125 MG TAB PO SCH (22:00)
[2021-09-16] MEDS: APIXABAN 5 MG TAB PO SCH (22:40)
[2021-09-16] MEDS: ATORVASTATIN 20 MG TAB PO SCH (22:40)
[2021-09-16 23:37] LABS: INR 1.72 (0.9-1.15); Partial Thromboplastin Time 45.3 sec (23.6-33.0)
[2021-09-17] VITALS: BP 106/49
[2021-09-17] MEDS: TEMAZEPAM 15 MG CAP PO PRN (01:27)
[2021-09-17] MEDS: ACETAMINOPHEN 325 MG TAB PO PRN ×2 (01:27→20:18)
[2021-09-17 05:00] VITALS: BP 102/39
[2021-09-17 05:52] LABS: Basophils # (auto) 0.1 10 ^3/uL (0-0.2); Basophils % (auto) 0.9 % (0.0-2.0); Eosinophils # (auto) 0.1 10 ^3/uL (0-0.8); Eosinophils % (auto) 0.9 % (0.0-7.0); Hematocrit 36.5 % (41.0-53.0); Hemoglobin 12.3 g/dL (13.5-17.5); Lymphocytes # (auto) 0.2 10 ^3/uL (0.4-5.4); Lymphocytes % (auto) 2.5 % (10.0-50.0); Mean Corpuscular Hemoglobin 33.9 pg (28.0-32.0); Mean Corpuscular Hgb Conc. 33.8 g/dL (32.0-36.0); Mean Corpuscular Volume 100.3 fL (80.0-100.0); Monocytes # (auto) 0.4 10 ^3/uL (0-1.3); Monocytes % (auto) 5.2 % (0.0-12.0); Neutrophils # (auto) 6.8 10 ^3/uL (1.6-8.6); Neutrophils % (auto) 90.5 % (37.0-80.0); Nucleated Red Blood Cells % 0.1 %; Red Blood Cells 3.64 10^6/uL (4.5-5.90); Red Cell Distribution Width 15.6 % (11.8-14.3); White Blood Cell 7.5 10^3/uL (4.4-10.8)
[2021-09-17 06:09] LABS: Albumin 2.4 g/dL (3.4-5.0); Calcium 8.6 mg/dL (8.5-10.1); Potassium 4.8 mmol/L (3.5-5.1)
[2021-09-17 06:12] LABS: BUN/Creatinine Ratio 33.5; Bilirubin, Total 2.1 mg/dL (0.2-1.0); Total Protein 5.7 g/dL (6.4-8.2)
[2021-09-17] MEDS: FUROSEMIDE 40 MG/4 ML VIAL IV SCH ×2 (06:51→17:36)
[2021-09-17] MEDS: CARVEDILOL 3.125 MG TAB PO SCH ×2 (08:50→23:10)
[2021-09-17] MEDS: DIGOXIN 0.125 MG TAB PO SCH (08:53)
[2021-09-17] MEDS: APIXABAN 5 MG TAB PO SCH (08:53)
[2021-09-17] MEDS: IVABRADINE 5 MG TAB PO SCH (08:55)
[2021-09-17] MEDS: PANTOPRAZOLE 40 MG TAB PO SCH (08:56)
[2021-09-17 09:00] VITALS: BP 95/44
[2021-09-17 13:00] VITALS: BP 106/46
[2021-09-17 17:00] VITALS: BP 116/50
[2021-09-17 17:13] LABS: Urine Bacteria NONE SEEN /hpf (None Seen); Urine Blood Negative /uL (Negative); Urine Hyaline Cast MOD /lpf (0 - 2); Urine Specific Gravity 1.009 (1.001-1.035); Urine WBC <1 /hpf (0 - 3)
[2021-09-17 17:26] LABS: Creatinine, Urine 26 mg/dL (30.0-125.0); Protein, Urine < 5 mg/dL (0.0-11.9); Sodium Urine 51 mmol/L (40-220)
[2021-09-17 22:00] VITALS: BP 96/38
[2021-09-17] MEDS ORDERED: APIXABAN 5 MG TAB PO SCH (22:00)
[2021-09-17] MEDS: DOBUTamine 1000MCG/ML 250 ML IV SCH (22:33)
[2021-09-17] MEDS: ATORVASTATIN 20 MG TAB PO SCH (23:10)
[2021-09-18] MEDS: ACETAMINOPHEN 325 MG TAB PO PRN (03:57)
[2021-09-18 05:00] VITALS: BP 102/51
[2021-09-18] MEDS: FUROSEMIDE 40 MG/4 ML VIAL IV SCH (06:09)
[2021-09-18 06:28] LABS: Basophils # (auto) 0 10 ^3/uL (0-0.2); Hematocrit 36.2 % (41.0-53.0); Hemoglobin 12.6 g/dL (13.5-17.5); Nucleated Red Blood Cells % 0.1 %; Red Blood Cells 3.64 10^6/uL (4.5-5.90); Red Cell Distribution Width 15.3 % (11.8-14.3); White Blood Cell 6.5 10^3/uL (4.4-10.8)
[2021-09-18 06:31] LABS: Basophils % (auto) 0.5 % (0.0-2.0); Eosinophils # (auto) 0.1 10 ^3/uL (0-0.8); Eosinophils % (auto) 2.2 % (0.0-7.0); Lymphocytes # (auto) 0.2 10 ^3/uL (0.4-5.4); Lymphocytes % (auto) 2.5 % (10.0-50.0); Mean Corpuscular Hemoglobin 34.5 pg (28.0-32.0); Mean Corpuscular Hgb Conc. 34.7 g/dL (32.0-36.0); Mean Corpuscular Volume 99.5 fL (80.0-100.0); Monocytes # (auto) 0.3 10 ^3/uL (0-1.3); Monocytes % (auto) 4.5 % (0.0-12.0); Neutrophils # (auto) 5.9 10 ^3/uL (1.6-8.6); Neutrophils % (auto) 90.3 % (37.0-80.0)
[2021-09-18 06:32] LABS: Potassium 4.5 mmol/L (3.5-5.1)
[2021-09-18 06:39] LABS: INR 1.66 (0.9-1.15); Partial Thromboplastin Time 47.6 sec (23.6-33.0)
[2021-09-18 06:41] LABS: Albumin 2.5 g/dL (3.4-5.0); BUN/Creatinine Ratio 33.2; Calcium 8.2 mg/dL (8.5-10.1); Total Protein 5.8 g/dL (6.4-8.2); Uric Acid 9.8 mg/dL (3.5-7.2)
[2021-09-18 08:00] VITALS: BP 96/55
[2021-09-18] MEDS: HYDROcodone-ACET 5/325MG TAB PO PRN (10:23)
[2021-09-18] MEDS: PANTOPRAZOLE 40 MG TAB PO SCH (10:24)
[2021-09-18] MEDS: DIGOXIN 0.125 MG TAB PO SCH (10:24)
[2021-09-18] MEDS: CARVEDILOL 3.125 MG TAB PO SCH ×2 (10:24→21:47)
[2021-09-18] MEDS: levoFLOXacin 750MG 150 ML IV SCH (10:35)
[2021-09-18] MEDS: IVABRADINE 5 MG TAB PO SCH (10:35)
[2021-09-18 10:38] LABS: Free T3 2.14 pg/mL (2.3-4.2); Free T4 (Free Thyroxine) 1.82 ng/dL (0.89-1.76)
[2021-09-18 12:00] VITALS: BP 95/24
[2021-09-18 16:00] VITALS: BP 89/26
[2021-09-18] MEDS: DOBUTamine 1000MCG/ML 250 ML IV SCH (21:48)
[2021-09-18] MEDS: TEMAZEPAM 15 MG CAP PO PRN (21:49)
[2021-09-18 22:00] VITALS: BP 101/38
[2021-09-19] MEDS: ATORVASTATIN 20 MG TAB PO SCH ×2 (03:29→22:15)
[2021-09-19] MEDS: HYDROcodone-ACET 5/325MG TAB PO PRN ×2 (03:30→15:45)
[2021-09-19 05:00] VITALS: BP 90/42
[2021-09-19] MEDS: FUROSEMIDE 40 MG/4 ML VIAL IV SCH ×3 (05:30→17:45)
[2021-09-19 06:33] LABS: Potassium 4.3 mmol/L (3.5-5.1)
[2021-09-19 06:36] LABS: Calcium 7.8 mg/dL (8.5-10.1)
[2021-09-19 08:00] VITALS: BP 90/42
[2021-09-19 09:00] VITALS: BP 102/46
[2021-09-19] MEDS: CARVEDILOL 3.125 MG TAB PO SCH ×2 (09:35→22:14)
[2021-09-19] MEDS: DIGOXIN 0.125 MG TAB PO SCH (09:35)
[2021-09-19] MEDS: PANTOPRAZOLE 40 MG TAB PO SCH (09:35)
[2021-09-19] MEDS: IVABRADINE 5 MG TAB PO SCH (09:35)
[2021-09-19 13:00] VITALS: BP 111/44
[2021-09-19 17:00] VITALS: BP 95/46
[2021-09-19] MEDS: TEMAZEPAM 15 MG CAP PO PRN (19:55)
[2021-09-19 22:00] VITALS: BP 138/42
[2021-09-19] MEDS: DOBUTamine 1000MCG/ML 250 ML IV SCH (22:32)
[2021-09-20] VITALS (7 sets, daily range): BP systolic 99–119; BP diastolic 33–68
[2021-09-20] MEDS: HYDROcodone-ACET 5/325MG TAB PO PRN ×2 (04:10→20:29)
[2021-09-20] MEDS: FUROSEMIDE 40 MG/4 ML VIAL IV SCH ×2 (05:48→17:43)
[2021-09-20 05:56] LABS: BUN/Creatinine Ratio 35.1; Calcium 7.9 mg/dL (8.5-10.1); Potassium 4.3 mmol/L (3.5-5.1)
[2021-09-20] MEDS: DOCUSATE SOD 100 MG CAP PO SCH ×2 (09:16→20:28)
[2021-09-20] MEDS: levoFLOXacin 750MG 150 ML IV SCH (09:16)
[2021-09-20] MEDS: IVABRADINE 5 MG TAB PO SCH (09:16)
[2021-09-20] MEDS: PANTOPRAZOLE 40 MG TAB PO SCH (09:17)
[2021-09-20] MEDS: DIGOXIN 0.125 MG TAB PO SCH (09:17)
[2021-09-20] MEDS: CARVEDILOL 3.125 MG TAB PO SCH ×2 (09:22→22:00)
[2021-09-20] MEDS: ATORVASTATIN 20 MG TAB PO SCH (20:29)
[2021-09-20] MEDS: TEMAZEPAM 15 MG CAP PO PRN (21:06)
[2021-09-21] MEDS: DOBUTamine 1000MCG/ML 250 ML IV SCH (03:34)
[2021-09-21 05:00] VITALS: BP 101/33
[2021-09-21 05:23] LABS: Albumin 2.2 g/dL (3.4-5.0); Basophils # (auto) 0 10 ^3/uL (0-0.2); Basophils % (auto) 0.4 % (0.0-2.0); Calcium 7.6 mg/dL (8.5-10.1); Eosinophils # (auto) 0.1 10 ^3/uL (0-0.8); Lymphocytes # (auto) 0.1 10 ^3/uL (0.4-5.4); Monocytes # (auto) 0.3 10 ^3/uL (0-1.3); Potassium 4.4 mmol/L (3.5-5.1)
[2021-09-21 05:25] LABS: Eosinophils % (auto) 1.2 % (0.0-7.0); Hematocrit 31.1 % (41.0-53.0); Lymphocytes % (auto) 1.3 % (10.0-50.0); Mean Corpuscular Hemoglobin 34.8 pg (28.0-32.0); Mean Corpuscular Hgb Conc. 35.5 g/dL (32.0-36.0); Monocytes % (auto) 4.2 % (0.0-12.0); Neutrophils # (auto) 6.1 10 ^3/uL (1.6-8.6); Neutrophils % (auto) 92.9 % (37.0-80.0); Red Blood Cells 3.17 10^6/uL (4.5-5.90); Red Cell Distribution Width 15.2 % (11.8-14.3); White Blood Cell 6.6 10^3/uL (4.4-10.8)
[2021-09-21 05:26] LABS: BUN/Creatinine Ratio 35.8; Bilirubin, Total 1.6 mg/dL (0.2-1.0); Total Protein 5.3 g/dL (6.4-8.2)
[2021-09-21] MEDS: FUROSEMIDE 40 MG/4 ML VIAL IV SCH ×3 (06:00→18:00)
[2021-09-21] MEDS ORDERED: LEVOTHYROXINE SODIUM 25 MCG TAB PO SCH (07:00)
[2021-09-21 09:00] VITALS: BP 98/37
[2021-09-21] MEDS: DIGOXIN 0.125 MG TAB PO SCH (10:02)
[2021-09-21] MEDS: IVABRADINE 5 MG TAB PO SCH (10:02)
[2021-09-21] MEDS: DOCUSATE SOD 100 MG CAP PO SCH (10:02)
[2021-09-21] MEDS: PANTOPRAZOLE 40 MG TAB PO SCH (10:03)
[2021-09-21 13:00] VITALS: BP 96/36
[2021-09-21 17:00] VITALS: BP 97/33
[2021-09-21 19:50] VITALS: BP 97/33
== END 2021-09-21 20:30 | disposition home or self-care (01) | DRG 291 ==
LOC: ER 18:16 → TELE 21:41 → TELE-CENTR 23:12
PROVIDERS: ADMIT Nurse Practitioner; ATTEND Internal Medicine
PROC: 0W993ZZ Drainage of Right Pleural Cavity, Percutaneous Approach (ICD-10-PCS; principal; 2021-09-18)
PROC: 4B02XTZ Measurement of Cardiac Defibrillator, External Approach (ICD-10-PCS; 2021-09-21)
DX: I13.0 Hypertensive heart and chronic kidney disease with heart failure and stage 1 through stage 4 chronic kidney disease, or unspecified chronic kidney disease (principal); I50.23 Acute on chronic systolic (congestive) heart failure; N17.0 Acute kidney failure with tubular necrosis; J96.21 Acute and chronic respiratory failure with hypoxia; E43 Unspecified severe protein-calorie malnutrition; J18.9 Pneumonia, unspecified organism; R18.8 Other ascites; D68.69 Other thrombophilia; E87.1 Hypo-osmolality and hyponatremia; J98.11 Atelectasis; K74.60 Unspecified cirrhosis of liver; D69.6 Thrombocytopenia, unspecified; E03.9 Hypothyroidism, unspecified; E11.22 Type 2 diabetes mellitus with diabetic chronic kidney disease; F41.9 Anxiety disorder, unspecified; E11.51 Type 2 diabetes mellitus with diabetic peripheral angiopathy without gangrene; J84.10 Pulmonary fibrosis, unspecified; I27.20 Pulmonary hypertension, unspecified; E78.5 Hyperlipidemia, unspecified; I25.5 Ischemic cardiomyopathy; I25.10 Atherosclerotic heart disease of native coronary artery without angina pectoris; N18.9 Chronic kidney disease, unspecified; Z20.822 Contact with and (suspected) exposure to COVID-19; I48.91 Unspecified atrial fibrillation; Z53.20 Procedure and treatment not carried out because of patient's decision for unspecified reasons; Z91.14 Patient's other noncompliance with medication regimen; Z99.81 Dependence on supplemental oxygen; I25.2 Old myocardial infarction; Z79.01 Long term (current) use of anticoagulants; Z79.899 Other long term (current) drug therapy; Z82.3 Family history of stroke; Z82.49 Family history of ischemic heart disease and other diseases of the circulatory system; Z83.3 Family history of diabetes mellitus; Z86.718 Personal history of other venous thrombosis and embolism; Z86.73 Personal history of transient ischemic attack (TIA), and cerebral infarction without residual deficits; Z95.1 Presence of aortocoronary bypass graft; Z95.810 Presence of automatic (implantable) cardiac defibrillator; Z79.84 Long term (current) use of oral hypoglycemic drugs; Z68.23 Body mass index [BMI] 23.0-23.9, adult
CPT/HCPCS: 36415; 71045; 71250; 76604; 80048; 80053; 80162; 81001; 82533; 82570; 83615; 83880; 83930; 83935; 84156; 84300; 84439; 84443; 84481; 84484; 84550; 85025; 85610; 85730; 87081; 87205; 89051; 93005; 96374; 96375; 97163; G0378; J1956; J2405